=== PATIENT | male | born 1985 | race Hispanic/Latino ===

== ENCOUNTER 2021-07-15 02:37 | Emergency (ER) | payer SELFPAY ==
[2021-07-15] MEDS ORDERED: IBUPROFEN 400 MG TAB ONE (03:42)
--- NOTE | 2021-07-15 05:49 | EDPHYS ---
Physician Documentation [facility] Name: Joel Herrera Age: 35 yrs Sex: Male : 1985 Arrival Date: 07/15/2021 Time: 02:42 Bed 7 Private MD: ED Physician Carrington Reynolds HPI: 07/15 03:28 This 35 yrs old Male presents to ER via Ambulatory with complaints of Arm mh7 Pain, Numbness Of Arm, Cant sleep. 03:28 The patient or guardian complains of pain, that is acute. The complaints affect the mh7 Right shoulder. Context: The problem was sustained at an unknown location, resulted from unknown cause. Onset: The symptoms/episode began/occurred 2 day(s) ago. Treatment prior to arrival includes: no previous treatment. Modifying factors: The symptoms are alleviated by remaining still, the symptoms are aggravated by movement. Associated signs and symptoms: Pertinent positives: pain, of the Right shoulder and right side of neck, Pertinent negatives: decreased range of motion, deformity, erythema, fever, nausea, numbness, swelling, tingling, vomiting, warmth, weakness. Severity of symptoms: At their worst the symptoms were moderate, yesterday, in the emergency department the symptoms are unchanged. 03:28 Patient complains of pain to the right side of his posterior neck radiating to right mh7 shoulder and arm for 2 days. He denies any trauma, fever, chest pain, abdominal pain, shortness of breath, nausea, vomiting, numbness/tingling, or weakness. He states that he has not been able to sleep for the last 2 days.. Historical: - Allergies: 02:50 No Known Allergies; dc2 - Home Meds: 02:50 None [Active]; dc2 - PMHx: 02:50 None; dc2 - PSHx: 02:50 Appendectomy; dc2 - Immunization history:: Adult Immunizations up to date, Client reports receiving the 2nd dose of the Covid vaccine, Last tetanus immunization: up to date. - Social history:: Smoking status: Patient reports the use of cigarette tobacco products, smokes one-half pack cigarettes per day, The patient works. ROS: 03:28 Constitutional: Negative for fever, chills, and weight loss, Eyes: Negative for injury, mh7 pain, redness, and discharge, ENT: Negative for injury, pain, and discharge. 03:28 Cardiovascular: Negative for chest pain, palpitations, and edema, Respiratory: Negative for shortness of breath, cough, wheezing, and pleuritic chest pain, Abdomen/GI: Negative for abdominal pain, nausea, vomiting, diarrhea, and constipation, Back: Negative for injury and pain, : Negative for injury, bleeding, discharge, and swelling. 03:28 Skin: Negative for injury, rash, and discoloration, Neuro: Negative for headache, weakness, numbness, tingling, and seizure, Psych: Negative for depression, anxiety, suicide ideation, homicidal ideation, and hallucinations, Allergy/Immunology: Negative for hives, rash, and allergies, Endocrine: Negative for neck swelling, polydipsia, polyuria, polyphagia, and marked weight changes, Hematologic/Lymphatic: Negative for swollen nodes, abnormal bleeding, and unusual bruising. 03:28 Neck: Positive for pain with movement, bony tenderness, Negative for injury or acute deformity, mass, pain at rest, rash, stiffness, swelling, swollen nodes. Exam: 03:28 Constitutional: This is a well developed, well nourished patient who is awake, alert, mh7 and in no acute distress. Head/Face: Normocephalic, atraumatic. Eyes: Pupils equal round and reactive to light, extra-ocular motions intact. Lids and lashes normal. Conjunctiva and sclera are non-icteric and not injected. Cornea within normal limits. Periorbital areas with no swelling, redness, or edema. 03:28 Chest/axilla: Normal chest wall appearance and motion. Nontender with no deformity. No lesions are appreciated. Cardiovascular: Regular rate and rhythm with a normal S1 and S2. No gallops, murmurs, or rubs. Normal PMI, no JVD. No pulse deficits. Respiratory: Lungs have equal breath sounds bilaterally, clear to auscultation and percussion. No rales, rhonchi or wheezes noted. No increased work of breathing, no retractions or nasal flaring. Abdomen/GI: Soft, non-tender, with normal bowel sounds. No distension or tympany. No guarding or rebound. No evidence of tenderness throughout. Back: No spinal tenderness. No costovertebral tenderness. Full range of motion. Skin: Warm, dry with normal turgor. Normal color with no rashes, no lesions, and no evidence of cellulitis. 03:28 Neuro: Awake and alert, GCS 15, oriented to person, place, time, and situation. Cranial nerves II-XII grossly intact. Motor strength 5/5 in all extremities. Sensory grossly intact. Cerebellar exam normal. Normal gait. Psych: Awake, alert, with orientation to person, place and time. Behavior, mood, and affect are within normal limits. 03:28 Neck: External neck: tenderness, that is moderate, of the right mid cervical area and right trapezius, C-spine: appears grossly normal, no vertebral tenderness, no crepitus, Thyroid: appears normal, Trachea: is midline with no obvious abnormalities, ROM/movement: pain, that is mild, with rotation to the right, with extension, Meningeal signs: are not present, nuchal rigidity, is not appreciated, Lymph nodes: no appreciated lymphadenopathy. 03:28 MS/ Extremity: Pulses equal, no cyanosis. Neurovascular intact. Full, normal range mh7 of motion. Vital Signs: 02:50 BP 132 / 81; Pulse 67; Resp 17; Temp 97.9; Pulse Ox 100% ; Weight 70.31 kg; Height 5 dc2 ft. 7 in. (170.18 cm); Pain 8/10; 02:50 BP 132 / 81; Pulse 67; Resp 17; Temp 97.9; Pulse Ox 100% ; Pain 8/10; dc2 04:30 BP 129 / 72; Pulse 71; Resp 17; Pulse Ox 100% ; Pain 6/10; dc2 05:20 BP 122 / 78; Pulse 69; Resp 20; Pulse Ox 99% ; Pain 5/10; dc2 02:50 Body Mass Index 24.28 (70.31 kg, 170.18 cm) dc2 MDM: 05:46 Differential diagnosis: tendonitis, Muscle spasm, degenerative disc disease, herniated mh7 disc. Data reviewed: vital signs, nurses notes. 05:49 Data interpreted: Pulse oximetry: on room air is 99 %. ED course: Patient has multiple mh7 times for sleep medication. Pain in his neck and shoulder significantly improved. Discussed with patient that the results are still pending for the CT C-spine. Patient refused to wait for results of CT and decided to leave AGAINST MEDICAL ADVICE. Explained the possibility of permanent disability and/or if serious condition is present and goes untreated. He verbalized that he understood the information that was presented. He has a normal mental status and normal neurological exam. He knows he can return to the ER if he has worsening of symptoms or other urgent concerns. He declined to wait for any discharge instructions or prescriptions.. 05:[address] [facility] 07/15 03:11 Order name: CT C Spine [facility] Administered Medications: 03:15 Drug: Ibuprofen 800 mg Route: PO; dc2 04:00 Follow up: Response: Pain is unchanged, physician notified; Anxiety unchanged dc2 Disposition Summary: 07/15/21 05:48 Left Against Medical Advice Location: Home dc2 Condition: Stable dc2 Discharge Instructions: - Discharge Summary Sheet [facility] - Degenerative Disk Disease [facility] - Cervical Radiculopathy, [id number] [facility] Signatures: Dispatcher [employer] Carrington Rojas MD MD [facility] Taylor, MIGUEL A Lopes RN dc2
--- NOTE | 2021-07-15 05:49 | ER ---
Nurse's Notes [facility] Name: Joel Herrera Age: 35 yrs Sex: Male : 1985 Arrival Date: 07/15/2021 Time: 02:42 Bed 7 Private MD: Diagnosis: Presentation: 07/15 02:50 Chief complaint: Patient states: " I cannot sleep for 2 days because of pain in my neck dc2 and right shoulder". Coronavirus screen: Vaccine status: Patient reports receiving the 2nd dose of the covid vaccine. Client denies travel out of the [place] in the last 14 days. At this time, the client does not indicate any symptoms associated with coronavirus-19. Ebola Screen: Patient negative for fever greater than or equal to 101.5 degrees Fahrenheit, and additional compatible Ebola Virus Disease symptoms Patient denies exposure to infectious person. Patient denies travel to an Ebola-affected area in the 21 days before illness onset. 02:50 Method Of Arrival: Ambulatory dc2 02:50 Initial Sepsis Screen: Does the patient meet any 2 criteria? No. Patient's initial dc2 sepsis screen is negative. Does the patient have a suspected source of infection? No. Patient's initial sepsis screen is negative. Risk Assessment: Do you want to hurt yourself or someone else? Patient reports no desire to harm self or others. Onset of symptoms was July 13, 2021. 02:50 Acuity: ANAIS 4 dc2 Triage Assessment: 02:50 General: Appears in no apparent distress. slender, well groomed, well developed, dc2 Behavior is calm, cooperative. Pain: Complains of pain in neck pain that radiates down left arm to elbow. 02:50 EENT: No deficits noted. No signs and/or symptoms were reported regarding the EENT dc2 system. Neuro: No deficits noted. Level of Consciousness is awake, obeys commands, Oriented to person, place, time, situation. Cardiovascular: No deficits noted. Denies chest pain, nausea, shortness of breath. Respiratory: No deficits noted. Airway is patent Breath sounds are clear bilaterally. Denies cough, shortness of breath. GI: No deficits noted. No signs and/or symptoms were reported involving the gastrointestinal system. Bowel sounds present X 4 quads. : No signs and/or symptoms were reported regarding the genitourinary system. Derm: No deficits noted. No signs and/or symptoms reported regarding the dermatologic system. Musculoskeletal: Capillary refill Range of motion: intact in all extremities, Pt co pain when right arm is down and is unable to sleep. Full ROM .No deformity or swelling noted. Injury Description: Denies injury or trauma. Historical: - Allergies: 02:50 No Known Allergies; dc2 - Home Meds: 02:50 None [Active]; dc2 - PMHx: 02:50 None; dc2 - PSHx: 02:50 Appendectomy; dc2 - Immunization history:: Adult Immunizations up to date, Client reports receiving the 2nd dose of the Covid vaccine, Last tetanus immunization: up to date. - Social history:: Smoking status: Patient reports the use of cigarette tobacco products, smokes one-half pack cigarettes per day, The patient works. Screenin:50 Abuse screen: Denies threats or abuse. Denies injuries from another. Nutritional dc2 screening: On. Tuberculosis screening: No symptoms or risk factors identified. Never had TB. Fall Risk None identified. No fall in past 12 months (0 pts). No secondary diagnosis (0 pts). No IV (0 pts). Ambulatory Aid- None/Bed Rest/Nurse Assist (0 pts). Gait- Normal/Bed Rest/Wheelchair (0 pts) Mental Status- Oriented to own ability (0 pts). Total De Guzman Fall Scale indicates No Risk (0-24 pts). Assessment: 02:50 General: Appears in no apparent distress. ill, slender, well groomed, well developed, dc2 Behavior is calm, cooperative. 02:50 Pain: Complains of pain in neck to right shoulder. Neuro: No deficits noted. dc2 Respiratory: No deficits noted. : No deficits noted. No signs and/or symptoms were reported regarding the genitourinary system. Derm:. Musculoskeletal: Reports pain in right trapezius righ mid cervical area radiatin to right arm. 04:15 Reassessment: Pt co unable to relax or sleep, has hands and feet waving around ? dc2 Provider made aware and pt asked to provide urine sample. VSS. continue to monitor. 04:44 Reassessment: Pt girlfriend out to nurse and MD desk and told to come to room, when dc2 enter room pt up around room and complaining of not being able to sleep. Dr. Reynolds to bedside to speak to patient. Informed multiple times that Sleeping medications are not given in the ED and that we are waiting for CT results . Pt aware of need for urine sample and states is unable to pee at this time. 05:15 Reassessment: Pt call for nurse and continue to complain of not being able to dc2 sleep. Charge nurse Samantha to room to speak to patient, re explain that the ER doesn't give pain medication, Pt states he would like to leave. 05:30 Reassessment: Pt sign AMA form and voices understanding of obtaining CT results if dc2 interested. Pt and girlfriend leave the ER with steady gait noted. IN nad. Vital Signs: 02:50 BP 132 / 81; Pulse 67; Resp 17; Temp 97.9; Pulse Ox 100% ; Weight 70.31 kg; Height 5 dc2 ft. 7 in. (170.18 cm); Pain 8/10; 02:50 BP 132 / 81; Pulse 67; Resp 17; Temp 97.9; Pulse Ox 100% ; Pain 8/10; dc2 04:30 BP 129 / 72; Pulse 71; Resp 17; Pulse Ox 100% ; Pain 6/10; dc2 05:20 BP 122 / 78; Pulse 69; Resp 20; Pulse Ox 99% ; Pain 5/10; dc2 02:50 Body Mass Index 24.28 (70.31 kg, 170.18 cm) dc2 ED Course: 02:42 Patient arrived in ED. bp1 02:50 Arm band placed on right wrist. dc2 02:50 Bed in low position. Call light in reach. Side rails up X 1. Pulse ox on. NIBP on. Door dc2 closed. Lights dimmed. 02:50 No provider procedures requiring assistance completed. dc2 02:56 Marianne Vazquez, MIGUEL A is Primary Nurse. dc2 02:59 Carrington Reynolds MD is Attending Physician. 7 03:00 ED physician to see patient. dc2 03:08 Triage completed. dc2 03:[address] dc2 03:34 CT C Spine In Process Unspecified. EDMS Administered Medications: 03:15 Drug: Ibuprofen 800 mg Route: PO; dc2 04:00 Follow up: Response: Pain is unchanged, physician notified; Anxiety unchanged dc2 Outcome: 05:15 AMA AMA form signed dc2 05:15 Condition: stable 05:15 Instructed on follow up and referral plans. obtaining CTresults from medical records 05:48 Patient left the ED. dc2 Signatures: Dispatcher [employer] EDMS Norma Becerra Maurice, MD MD 7 Marianne Vazquez RN RN dc2
[2021-07-15 06:10] VITALS: TEMP 97.9
[2021-07-15 06:13] VITALS: BP 122/78; O2SAT 99
--- NOTE | 2021-07-15 19:07 | RAD REPORT ---
EXAM DESCRIPTION: CT - C Spine Wo Con - 07/15/2021 6:22 am CLINICAL HISTORY: 35 years Male RADICULOPATHY COMPARISON: None TECHNIQUE: Contiguous axial images were obtained through the cervical spine. Coronal and sagittal re constructions are also obtained and reviewed. This exam was performed according to our departmental d ose-optimization program, which includes automated exposure control, adjustment of the mA and/or kV a ccording to patient size and/or use of iterative reconstruction technique. FINDINGS: VERTEBRAE: There is no evidence of acute fracture, osseous destruction or osteoblastic changes. There is no evidence of subluxation or dislocation. Vertebral body heights are maintained. There is no gross malalignment. DISCS AND NEURAL FORAMINA: Disc spaces are maintained with the exception of mild loss of disc height at C6-7.. The neural foramina are patent. SOFT TISSUES: The prevertebral soft tissues are normal. There is no evidence of lymphadenopathy. LUNG APICES: The visualized lung apices show no gross pneumonia, mass or pneumothorax. OTHER OSSEOUS STRUCTURES: The visualized portions of the skull base and brain are normal. There is minimal mucoperiosteal thickening in the bilateral ethmoid sinuses and mild to moderate muco periosteal thickening bilaterally in the maxillary sinuses, right greater than left. IMPRESSION: NO ACUTE OSSEOUS ABNORMALITIES. (Please note that spinal CT scan examinations have limited accuracy in evaluating epidural disease. C orrelation with MRI exam (or myelography as clinically appropriate) is suggested if there is clinical concern for epidural disease such as intervertebral disc herniations, epidural abscess/hematoma, or epidural neoplasm.) MILD DEGENERATIVE DISC DISEASE AT C6-7. LOSS OF THE CERVICAL LORDOSIS MAY INDICATE SPASM. PARANASAL SINUS DISEASE DESCRIBED. Electronically signed by: Emmy Ortiz MD 07/15/2021 5:36 AM CDT Due to temporary technical issues with the PACS/Fluency reporting system, reports are being signed by the in house radiologists without review as a courtesy to insure prompt reporting. The interpreting radiologist is fully responsible for the content of the report.
== END 2021-07-15 05:48 | disposition left against medical advice (07) ==
LOC: ER 02:37
DX: M50.323 Other cervical disc degeneration at C6-C7 level (principal); F17.210 Nicotine dependence, cigarettes, uncomplicated
CPT/HCPCS: 72125; 99284